=== PATIENT | female | born 1960 | race Caucasian/White ===

== ENCOUNTER 2020-01-30 09:25 | Emergency (ER) | payer OTHER, SELFPAY ==
[~2020-01-30] VITALS: Ht 154.9 cm; Wt 81.6 kg
[2020-01-30 09:38] VITALS: BP 113/69
--- NOTE | 2020-01-30 09:40 | NUR ---
biba w c/o covid + and increasing weakness, body aches 6/10 x7 days. DENIES N/V/D; SKIN IS PINK/WARM/DRY; AAOX4 WITH EVEN AND STEADY GAIT; LUNGS CLEAR BL; HR EVEN AND REGULAR; PT DENIES ANY FEVER, CP, SOB, OR COUGH AT THIS TIME; PATIENT STATES PAIN OF 6/10 AT THIS TIME. PATIENT POSITIONED FOR COMFORT; HOB ELEVATED; BEDRAILS UP X1; BED DOWN. ER MD MADE AWARE OF PT STATUS.
[2020-01-30] MEDS ORDERED: ONDANSETRON 4 MG ODT PO ONE (10:10)
[2020-01-30] MEDS ORDERED: ACETAMINOPHEN 325 MG TAB PO ONE (10:10)
[2020-01-30] MEDS ORDERED: NACL 0.9% 1,000 ML IV ONE (10:10)
[2020-01-30] MEDS ORDERED: MECLIZINE 25 MG TAB PO ONE (10:10)
--- NOTE | 2020-01-30 10:28 | NUR ---
OUT OF ROOM CT SCAN GROCERY STOCKER TO ATTEMPT AT A LATER TIME
--- NOTE | 2020-01-30 10:34 | NUR ---
PT TAKEN TO X RAY
[2020-01-30 11:38] LABS: BASOPHILS % (AUTO) 0.2 % (0.0-2.0); HEMATOCRIT 41.7 % (36-48); HEMOGLOBIN 13.8 g/dL (12.0-16.0); LYMPHOCYTES # (AUTO) 1.1 K/uL (2.5-16.5); LYMPHOCYTES % (AUTO) 19.5 % (20.5-51.1); MEAN CORPUSCULAR HEMOGLOBIN 29 pg (27-31); MEAN CORPUSCULAR HGB CONC 33 g/dL (33-37); MEAN CORPUSCULAR VOLUME 87.5 fL (80-94); MONOCYTES # (AUTO) 0.5 K/uL (0.8-1.0); MONOCYTES % (AUTO) 8.7 % (1.7-9.3); NEUTROPHILS # (AUTO) 4.1 K/uL (1.8-7.7); NEUTROPHILS % (AUTO) 71.6 % (42.2-75.2); PLATELET COUNT (AUTO) 208 K/uL (140-450); RED BLOOD CELL COUNT(AUTO) 4.77 MIL/uL (4.20-5.40); RED CELL DISTRIBUTION WIDTH 13.4 % (11.6-13.7); WHITE BLOOD COUNT (AUTO) 5.7 K/uL (4.8-10.8)
[2020-01-30 11:46] LABS: APPEARANCE,URINE CLEAR (CLEAR); BILIRUBIN,URINE 1+ (NEGATIVE); BLOOD, URINE NEGATIVE (NEGATIVE); COLOR,URINE YELLOW (YELLOW); LEUKOCYTE ESTERASE ,URINE TRACE (NEGATIVE); NITRITE, URINE NEGATIVE (NEGATIVE); UGLUCOSE NEGATIVE (NEGATIVE)
[2020-01-30 11:59] LABS: PROTHROMBIN TIME 10.3 secs (10.8-13.4)
[2020-01-30 12:00] LABS: RBC,URINE 0-5 /HPF (0-5); WBC,URINE 0-5 /HPF (0-5)
[2020-01-30 12:10] LABS: ALBUMIN 3.9 g/dL (3.4-5.0); CARBON DIOXIDE 28.9 mmol/L (21-32); CREATININE 0.8 mg/dL (0.6-1.3); TOTAL BILIRUBIN 0.3 mg/dL (0.0-1.0)
[2020-01-30 12:32] LABS: ANION GAP 11.8 (8-16); POTASSIUM 3.7 mmol/L (3.5-5.1)
[2020-01-30 14:58] VITALS: BP 119/72
--- NOTE | 2020-01-30 14:58 | NUR ---
Patient discharged with v/s stable. Written and verbal after care instructions given and explained. Patient alert, oriented and verbalized understanding of instructions. Ambulatory with steady gait. All questions addressed prior to discharge. ID band removed. Patient advised to follow up with PMD. Rx of MECLIZINE & TESSALON & ZOFRAN given. Patient educated on indication of medication including possible reaction and side effects. Opportunity to ask questions provided and answered.
== END 2020-01-30 14:58 | disposition home or self-care (01) ==
LOC: MED 09:25
DX: R42 Dizziness and giddiness (principal); Z20.828 Contact with and (suspected) exposure to other viral communicable diseases; R05 Cough; M79.10 Myalgia, unspecified site; R53.83 Other fatigue; R06.02 Shortness of breath; E11.9 Type 2 diabetes mellitus without complications
CPT/HCPCS: 36415; 36600; 70450; 71045; 80053; 81001; 82550; 82803; 83605; 83880; 84484; 85025; 85610; 85730; 87040; 87086; 93005; 96360; 99285; J7030; J8597; Q0162

== ENCOUNTER 2020-05-15 19:10 | Inpatient (IN) | payer OTHER, SELFPAY ==
[~2020-05-15] VITALS: Ht 167.6 cm; Wt 76.7 kg
[2020-05-15 19:12] VITALS: BP 65/23
--- NOTE | 2020-05-15 19:13 | NUR ---
PATIENT BIBA FOR C/O GENERALIZED WEAKNESS X 1 DAY. PER [facility] N/V X 1 HOUR. PATIENT NOTED WITH CHILLS. NO RESPIRATORY DISTRESS NOTED. BILATERAL PERRLA NOTED. A&O X4. BLOOD SUGAR 92. PER PATIENT SHE STATES SHE HAS BEEN HAVING A HEADACHE "ON AND OFF" SINCE 0200 THIS MORNING AND C/O DIZZINESS AND WEAKNESS. [facility] REPORTS PATIENT WAS COVID POSITIVE IN JANUARY AND REPORTS PATIENT LOST IN FEBRUARY. PATIENT PLACED IN [place] POSITION, RESTING COMFORTABLY. MED HX: DIVERTICULITIS, DM, DEPRESSION ALLERGIES: NKA
--- NOTE | 2020-05-15 19:22 | NUR ---
ekg performed at bedside. ekg reads sinus rhythm @ 87
[2020-05-15] MEDS ORDERED: NACL 0.9% 2,000 ML IV ONE (20:35)
[2020-05-15] MEDS ORDERED: NACL 0.9% 1,000 ML IV ONE ×2 (20:35→23:55)
[2020-05-15] MEDS ORDERED: ONDANSETRON 4 MG/2 ML VIAL IVP ONE (20:35)
--- NOTE | 2020-05-15 20:55 | NUR ---
XRAY AT BEDSIDE.
--- NOTE | 2020-05-15 21:03 | NUR ---
LAB AT BEDSIDE DRAWING LABS AND BLOOD CULTURES.
[2020-05-15 21:39] LABS: BASOPHILS % (AUTO) 0.1 % (0.0-2.0); EOSINOPHILS % (AUTO) 0.1 % (0.0-4.0); HEMATOCRIT 37.6 % (36-48); HEMOGLOBIN 12.5 g/dL (12.0-16.0); LYMPHOCYTES # (AUTO) 0.3 K/uL (2.5-16.5); LYMPHOCYTES % (AUTO) 5.7 % (20.5-51.1); MEAN CORPUSCULAR HEMOGLOBIN 30 pg (27-31); MEAN CORPUSCULAR HGB CONC 33 g/dL (33-37); MEAN CORPUSCULAR VOLUME 89.3 fL (80-94); MONOCYTES % (AUTO) 0.2 % (1.7-9.3); NEUTROPHILS # (AUTO) 4.9 K/uL (1.8-7.7); NEUTROPHILS % (AUTO) 93.9 % (42.2-75.2); PLATELET COUNT (AUTO) 230 K/uL (140-450); RED BLOOD CELL COUNT(AUTO) 4.21 MIL/uL (4.20-5.40); RED CELL DISTRIBUTION WIDTH 13.4 % (11.6-13.7); WHITE BLOOD COUNT (AUTO) 5.2 K/uL (4.8-10.8)
--- NOTE | 2020-05-15 21:41 | NUR ---
PATIENT TAKEN TO CT VIA GURNEY.
--- NOTE | 2020-05-15 21:49 | NUR ---
PT RETURN FROM CT
[2020-05-15 21:50] LABS: ALBUMIN 3.2 g/dL (3.4-5.0); ANION GAP 12.4 (8-16); CARBON DIOXIDE 23.9 mmol/L (21-32); CREATININE 1.1 mg/dL (0.6-1.3); POTASSIUM 3.3 mmol/L (3.5-5.1); TOTAL BILIRUBIN 0.5 mg/dL (0.0-1.0)
[2020-05-15] MEDS ORDERED: POTASSIUM CHL 20 MEQ/NACL 0.9% 1,000 ML IV ONE (22:15)
[2020-05-15 22:52] LABS: APPEARANCE,URINE CLEAR (CLEAR); BILIRUBIN,URINE NEGATIVE (NEGATIVE); BLOOD, URINE TRACE-I (NEGATIVE); COLOR,URINE YELLOW (YELLOW); LEUKOCYTE ESTERASE ,URINE NEGATIVE (NEGATIVE); NITRITE, URINE NEGATIVE (NEGATIVE); UGLUCOSE NEGATIVE (NEGATIVE)
--- NOTE | 2020-05-15 22:59 | NUR ---
LUIS ANTONIO FROM LAB AT BEDSIDE.
[2020-05-15 23:02] LABS: WBC,URINE 0-5 /HPF (0-5)
[2020-05-15 23:04] LABS: BARBITURATE, URINE NEGATIVE ng/ml (NEG <=200); BENZODIAZEPINE, URINE NEGATIVE ng/mL (NEG <=200); CANNABINOID, URINE NEGATIVE ng/mL (NEG <=50); COCAINE, URINE NEGATIVE ng/mL (NEG <=300); OPIATE, URINE NEGATIVE ng/mL (NEG <=2000); PHENCYCLIDINE SCREEN,URINE NEGATIVE ng/mL (NEG <=25)
--- NOTE | 2020-05-15 23:30 | NUR ---
Note alaina in EDM - 05/15/20 at 2342 by SANDRA PATIENT BP NOTED TO BE 89/37. ERMD MADE AWARE. NO NEW ORDERS AT THIS TIME.
--- NOTE | 2020-05-15 23:30 | NUR ---
PATIENT BP NOTED TO BE 89/37. ERMD MADE AWARE. NO NEW ORDERS AT THIS TIME.
--- NOTE | 2020-05-15 23:40 | NUR ---
Jessica foley in [facility] - 05/15/20 at 2342 by SANDRA CARMENCITA SWAB COLLECTED AND TAKEN TO LAB.
--- NOTE | 2020-05-15 23:40 | NUR ---
CARMENCITA SWAB COLLECTED AND TAKEN TO LAB.
[2020-05-15] MEDS ORDERED: NOREPINEPHRINE 4 MG in DEXTROSE 5% 250 ML IV ONE (23:55)
[2020-05-16] VITALS (15 sets, daily range): BP systolic 95–128; BP diastolic 47–69
[2020-05-16] MEDS ORDERED: cefTRIAXone 1,000 MG VIAL ONE ×2 (00:26→10:46)
[2020-05-16] MEDS ORDERED: NOREPINEPHRINE 4 MG/4 ML VIAL IV ONE ×3 (00:27→09:53)
--- NOTE | 2020-05-16 01:55 | NUR ---
WITH PERMISSION FROM PATIENT, SPOKE WITH ALBANIA HERNANDEZ [phone] AND GAVE AN UPDATE ON PATIENT CONDITION.
--- NOTE | 2020-05-16 03:16 | NUR ---
Patient appears to be resting comfortably in bed. Vital Signs within normal limits. Respirations even and unlabored.
--- NOTE | 2020-05-16 04:02 | NUR ---
PATIENT ASSISTED TO BEDSIDE COMODE. PATIENT REMAINS ON UTILIZATION MANAGER. VSS.
--- NOTE | 2020-05-16 05:32 | NUR ---
PATIENT RESTING IN BED WITH EYES CLOSED. PATIENT RESPIRATIONS ARE EVEN AND UNLABORED. SKIN IS WARM AND DRY TO TOUCH. PATIENT RESPONSIVE TO VERBAL STIMULI. PATIENT REMAINS ON QUALITY ASSURANCE SPECIALIST. VSS. PATIENT REMAINS ON LEVOPHED DRIP. IV SITE REMAINS PATIENT. BED IS LOCKED AND IN LOWEST POSTION.
--- NOTE | 2020-05-16 06:55 | NUR ---
Patient appears to be resting comfortably in bed. Vital Signs within normal limits. Respirations even and unlabored.
--- NOTE | 2020-05-16 07:14 | NUR ---
REPORT GIVEN TO BARBARA TERRAZAS FOR TRANSFER OF CARE.
[2020-05-16] MEDS ORDERED: GABA300C PO (07:15)
[2020-05-16] MEDS ORDERED: ROSU20TA1 PO (07:15)
[2020-05-16] MEDS ORDERED: OMEP20TC10 PO (07:15)
--- NOTE | 2020-05-16 07:20 | NUR ---
RECEIVED REPORT FROM GEGE JIMENEZ, TRANSFER OF CARE AT THIS TIME. CONTACTED DR SANDY REGARDING LEVOPHED BEING IN PERIPHERAL LINE, STATES TO ORDER PICC LINE. PICC LINE ORDERED. PT RESTING WITH EYES CLOSED, BREATHING EVEN AND UNLABORED.
--- NOTE | 2020-05-16 07:23 | NUR ---
CALL PLACE TO [facility], LEAVE MESSAGE.
--- NOTE | 2020-05-16 07:35 | NUR ---
EXPLAINED IN [place] IMPORTANCE OF KEEPING ARM STRAIGHT, AND POSSIBLE DANGER OF INFILTRATION WITH VESICANT MEDICATION. PT VERBALIZE UNDERSTANDING.
--- NOTE | 2020-05-16 07:39 | NUR ---
CONSENT FOR PICC LINE EXPLAINED TO PT IN [place], PT VERBALIZES UNDERSTANDING. CONSENT SIGNED BY PT.
[2020-05-16] MEDS ORDERED: HYDROcodone/APAP 5/325 MG 1 TAB TAB PO PRN (08:25)
[2020-05-16] MEDS ORDERED: MORPHINE SULFATE 2 MG/ML SYR IVP PRN (08:25)
[2020-05-16] MEDS ORDERED: LORazepam 2 MG/ML VIAL IM/IVP PRN (08:25)
[2020-05-16] MEDS ORDERED: MAG SULF 2000 MG/WATER PREMIX 50 ML IV PRN (08:25)
[2020-05-16] MEDS ORDERED: INSULIN LISPRO SLIDING SCALE 100 UNITS/ML VIAL SUBQ PRN (08:25)
[2020-05-16] MEDS ORDERED: DEXTROSE 50% 50 ML SYR IVP PRN (08:25)
[2020-05-16] MEDS ORDERED: DOCUSATE SODIUM 100 MG GELCAP PO PRN (08:25)
[2020-05-16] MEDS ORDERED: ZOLPIDEM 5 MG TAB PO PRN (08:25)
[2020-05-16] MEDS ORDERED: NOREPINEPHRINE 16 MG in DEXTROSE 5% 250 ML IV PRN (08:25)
[2020-05-16] MEDS ORDERED: POTASSIUM CHLORIDE 10 MEQ TABER PO PRN (08:25)
[2020-05-16] MEDS ORDERED: NACL 0.9% 1,000 ML IV SCH ×3 (08:25→09:25)
--- NOTE | 2020-05-16 08:50 | NUR ---
DC PLANNIN YRS OLD FEMALE PATIENT WAS ADMITTED FROM HOME WITH THE DX OF SEPTIC SHOCK . PT HAS A HX OF COVID IN JAN 2020 DIVERTICULOSIS , DM AND DEPRESSION . CT HEAD NEGATIVE. CXR SHOWED NO ACUTE CARDIOPULMONARY DISEASE RAPID COVID TEST NEGATIVE. ABD X-RAY SHOWED ON SPECIFIC BOWEL GAS PATTERN. LACTIC ACID 2.5 STARTED IVF , ROCEPHIN IV ABX , LEVOPHED DRIP AND CONTINUED HOME MEDS CONSULTED WITH PULMO AND ID. DC PLAN PER PT RESPONSE TO THE TREATMENT. CM TO FOLLOW Addendum: 05/19/20 at 1445 by Siria Mckinney RN DC PLANNING: FAXED TO [facility] [phone] FOR HOME INFUSION. PLS FOLLOW UP WITH GEOR[place] [phone].CM TO FOLLOW Addendum: 05/19/20 at 1550 by Siria Mckinney RN DC PLANNING: RECEIVED A CALL FROM [facility] SPOKE WITH REGINA NOTIFIED HER DC PLAN OVER THE WEEKEND AWAITING FOR DR RAMOS RECOMMENDATION. PER REGINA HAS NO NURSE OVER THE WEEKEND WILL FOLLOW UP ON FRIDAY. CM TO FOLLOW
[2020-05-16] MEDS ORDERED: NON-FORMULARY ITEM (Rosuvastatin Calcium* (Crestor*) 1 TAB) PO SCH (09:00)
[2020-05-16 09:20] LABS: PROTHROMBIN TIME 13.3 secs (10.8-13.4)
[2020-05-16 09:32] LABS: CHOL/HDL RATIO 1.9 (1-4.5); THYROID STIMULATING HORMONE 0.4 uIU/mL (0.34-3.74)
--- NOTE | 2020-05-16 09:44 | NUR ---
PT ALERT AWAKE AND ALERT, BREATHING EVEN AND UNLABORED. NO DISTRESS NOTED. LEFT AC APPEARS WITHOUT ANY INFILTRATION.
--- NOTE | 2020-05-16 10:00 | NUR ---
PT ALERT AND AWAKE, BREATHING EVEN AND UNLABORED. NO DISTRESS NOTED.
[2020-05-16] MEDS: GABAPENTIN 300 MG CAP PO SCH (10:03)
--- NOTE | 2020-05-16 10:03 | NUR ---
PICC NURSE AT BEDSIDE.
--- NOTE | 2020-05-16 10:21 | NUR ---
SOCIAL WORK NOTE: Patient's Orientation Unable To Assess Information Provided By ALBANIA HERNANDEZ - SON Comments SW WAS UNABLE TO MEET PATIENT AT BEDSIDE. SW COMPLETED ASSESSMENT WITH PATIENT'S SON. Pulley Maintainer, Realtionship and Phone Number ALBANIA LYNCH [phone] Healthcare Power of Bundling Machine Operator No Does Patient Have a POLST No Identifying Problems No Social Work Triggers Is A Social Work Consult Needed No Mandate Report Filed No Explanation Of Identifying Problems PATIENT IS A 59-YEAR-OLD FEMLAE ADMITTED FOR SEPTIC SHOCK. PATIENT HAS PMHX OF DIABETES. Admitted From Home Pre-Admission Level Of Functioning Status Independent/Ambulatory Prior Resources/Services Used In Last 12 Months No Prior Resources Used Prior DME No Prior DME Used Dialysis Comments N/A Living Situation Lives With Family House Patient Had Caregiver No Home Support No Caregiver Issues Financial Issues No Known Financial Issue Referral To The Financial Counselor Needed No Factors/Needs No D/C Needs Identified Pt/Rep Participated In Discharge Plan Yes Patient/Family Agress With Discharge Plan Yes Discharge Plan Comments TENTATIVE DISCHARGE PLAN IS FOR PATIENT TO RETURN HOME. DC Plan Status Initiated
--- NOTE | 2020-05-16 10:51 | NUR ---
PICC LINE OK FOR USE PER PICC LINE NURSE AFTER CXR PLACEMENT. LEVOPHED RUNNING ON PICC LINE
--- NOTE | 2020-05-16 11:00 | NUR ---
PT ALERT AND AWAKE, BREATHING EVEN AND UNLABORED. NO DISTRESS NOTED.
--- NOTE | 2020-05-16 11:03 | NUR ---
ONLY 100ML/1000ML OF NACL-KCL 20MEQ GIVEN DUE TO LEVOPHED. DR SANDY MADE AWARE, STATES TO HOLD MED AND GIVE 40MEQ PO.
[2020-05-16] MEDS ORDERED: POTASSIUM CHLORIDE 10 MEQ TABER PO SCH (11:05)
--- NOTE | 2020-05-16 11:24 | NUR ---
REPORT GIVEN TO BARBARA ELLIS IN ICU.
--- NOTE | 2020-05-16 11:40 | NUR ---
Patient will be admitted to care of Dr Parker. Admited to ICU. Will go to room 3. Belongings list completed. Report to Melly JIMENEZ.
--- NOTE | 2020-05-16 11:40 | NUR ---
PT TAKEN TO FLOOR AT THIS TIME.
--- NOTE | 2020-05-16 11:50 | NUR ---
RECEIVED PATIENT FROM ER. PATIENT AOX4, ABLE TO MAKE NEEDS KNOW. NO SIGNS OF DISTRESS OR PAIN. ON 2L NC. SHARAN PICC LINE DOUBLE LUMEN INFUSING LEVO AT 16 MCG/MIN. SKIN INTACT. MEDICAL RECORDS FIELD TECHNICIAN, PULSE OXIMETER, AND SAFETY MEASURES IN PLACE. BED IN LOW POSITION, CALL LIGHT WITHIN REACH, WILL CONTINUE TO MONITOR.
--- NOTE | 2020-05-16 11:55 | NUR ---
PT ARRIVED FROM ER ON GURNEY, ABLE TO TRANSFER SELF TO BED, AAOX4, RESP EVEN UNLABORED, ON 2L NC, O2SAT 100%, PT PLACED ON JOB PRESS OPERATOR, ARRIVES ON LEVOPPHED DRIP AT 16MCG/MIN, BP 111/58, PICCC LINE IN PLACE TO R UPPER ARM, SITE WNL, INITIAL ASSESSMENT DONE, POC REVIEWED WITH PT AND CRIS LOVELACE ON THE PHONE, VERBALIZED UNDERSTANDING, ALL SAFETY MEASURES IN PLACE, WILL CONTIUE TO ALEXIS
--- NOTE | 2020-05-16 12:10 | NUR ---
CHARGE NURSE, RHONDA RN, CHECKED BLOOD SUGAR, 124, NO INSULIN COVERAGE NEEDED, WILL CONTINUE TO MONITOR.
[2020-05-16] MEDS: BLOOD GLUCOSE MONITORING 1 DEV DEV FS SCH ×3 (12:18→19:57)
--- NOTE | 2020-05-16 12:20 | NUR ---
ADMINISTERED SCHEDULED K DUR FOR LOW POTASSIUM. WILL CONTINUE TO MONITOR.
--- NOTE | 2020-05-16 14:51 | NUR ---
PATIENT HAS BEEN SCREENED AND CATEGORIZED HIGH NUTRITION RISK. PATIENT WILL BE SEEN WITHIN 1-2 DAYS OF ADMISSION. 05/16/20-05/17/[address]
--- NOTE | 2020-05-16 16:45 | NUR ---
CHECKED ON PATIENT, NO SIGN OF DISTRESS OR PAIN, WILL CONTINUE TO MONITOR.
--- NOTE | 2020-05-16 18:40 | NUR ---
CHECKED ON PATIENT, NO SIGN OF DISTRESS OR PAIN, PATIENT COMFORTABLE AND CLEAN, IV AND PICC CLEAN, DRY, AND INTACT. MEDICAL INSURANCE CLAIMS PROCESSOR, PULSE OXIMETER, AND SAFETY MEASURES IN PLACE. CALL LIGHT WITHIN REACH. ABLE TO MAKE NEEDS KNOW. BED IN LOW POSITION. WILL CONTINUE TO MONITOR. WILL ENDORSE TO CRIMINAL JUSTICE FACULTY RN.
--- NOTE | 2020-05-16 19:12 | NUR ---
ENDORSED TO EDITOR DEPARTMENT NURSE, J CARLOS JIMENEZ, FOR CONTINUITY OF CARE.
--- NOTE | 2020-05-16 19:13 | NUR ---
RECEIVED BEDSIDE REPORT FROM DAY RN. PT IS AAOX4 ABLE TO MAKE NEEDS KNOWN. PT IS RESTING COMFORTABLY IN BED TALKING ON PHONE WITH SON. RESPIRATIONS ARE EQUAL AND UNLABORED ON ROOM AIR. LUNG SOUNDS ARE CLEAR. SKIN IS INTACT. PT ON BEDREST D/T GEN WEAKNESS. IV ON SHARAN PICC DOUBLE LUMEN ON TKO AND LEVO 12MCG/MIN. PT ON STANDARD ISOLATION. POC DISCUSSED WITH PT. CALL LIGHT IS WITHIN REACH. WILL CONTINUE TO MONITOR.
[2020-05-16] MEDS: metroNIDAZOLE 500 MG/NS PREMIX 100 ML IV SCH (20:05)
--- NOTE | 2020-05-16 20:05 | NUR ---
VSS. BLOOD SUGAR 105 NO COVERAGE NEEDED. BRIAN MEDICATIONS GIVEN PER ORDERS. MED EDUCATION GIVEN. IV ON LAC 18G REMOVED WITH MINIMAL BLEEDING WELL CONTROLLED. ALL NEEDS MET. CALL LIGHT IS WITHIN REACH
[2020-05-16] MEDS: SIMVASTATIN 40 MG TAB PO SCH (20:06)
--- NOTE | 2020-05-16 22:03 | NUR ---
PATIENT RESTING COMFORTABLY IN BED TALKING ON THE PHONE. NO S/S OF DISTRESS. GAVE PATIENT BLANKET PER REQUEST. ALL NEEDS MET.
[2020-05-17] VITALS (12 sets, daily range): BP systolic 92–124; BP diastolic 42–64
--- NOTE | 2020-05-17 00:04 | NUR ---
ROUNDS MADE. PT APPEARS TO BE ASLEEP EASILY AROUSABLE TO NAME. VSS. DENIES ANY PAIN AT THIS TIME. SAFETY MEASURES ARE IN PLACE. CALL LIGHT IS WITHIN REACH.
--- NOTE | 2020-05-17 02:01 | NUR ---
MADE ROUNDS. PATIENT APPEARS TO BE SLEEPING. CHEST RISE AND FALL NOTED.CALL LIGHT IS WITHIN REACH.
[2020-05-17] MEDS: ACETAMINOPHEN 325 MG TAB PO PRN ×2 (04:13→15:30)
[2020-05-17] MEDS: metroNIDAZOLE 500 MG/NS PREMIX 100 ML IV SCH ×3 (04:13→20:22)
--- NOTE | 2020-05-17 04:13 | NUR ---
BRIAN MEDICATIONS GIVEN PER ORDERS. VSS PT TEMP 100.8 ADMIN PRN TYLENOL AND COOLING MEASURES ARE NOW IN PLACE. ALL NEEDS MET. CALL LIGHT IS WITHIN REACH.
--- NOTE | 2020-05-17 05:25 | NUR ---
ASSISTED PATIENT WITH THE BEDPAN. SPONGE BATH GIVEN AND NEW GOWN AND SHEETS PROVIDED. BLOOD SUGAR 118. RECHECK TEMP 99.4. WILL CONTINUE WITH COOLING MEASURES. ALL SAFETY MEASURES ARE IN PLACE.
[2020-05-17 06:04] LABS: BASOPHILS # (AUTO) 0.1 K/uL (0.00-0.22); BASOPHILS % (AUTO) 0.2 % (0.0-2.0); EOSINOPHILS # (AUTO) 0.1 K/uL (0-0.4); EOSINOPHILS % (AUTO) 0.3 % (0.0-4.0); HEMATOCRIT 32.4 % (36-48); HEMOGLOBIN 10.7 g/dL (12.0-16.0); LYMPHOCYTES # (AUTO) 1.1 K/uL (2.5-16.5); LYMPHOCYTES % (AUTO) 4.4 % (20.5-51.1); MEAN CORPUSCULAR HEMOGLOBIN 29 pg (27-31); MEAN CORPUSCULAR HGB CONC 33 g/dL (33-37); MEAN CORPUSCULAR VOLUME 89.1 fL (80-94); MONOCYTES # (AUTO) 0.9 K/uL (0.8-1.0); MONOCYTES % (AUTO) 3.8 % (1.7-9.3); NEUTROPHILS # (AUTO) 22.4 K/uL (1.8-7.7); NEUTROPHILS % (AUTO) 91.3 % (42.2-75.2); PLATELET COUNT (AUTO) 178 K/uL (140-450); RED BLOOD CELL COUNT(AUTO) 3.64 MIL/uL (4.20-5.40); RED CELL DISTRIBUTION WIDTH 13.6 % (11.6-13.7)
[2020-05-17] MEDS: BLOOD GLUCOSE MONITORING 1 DEV DEV FS SCH ×4 (06:17→20:22)
[2020-05-17 06:42] LABS: WHITE BLOOD COUNT (AUTO) 24.6 K/uL (4.8-10.8)
[2020-05-17 06:52] LABS: ANION GAP 14.5 (8-16); CARBON DIOXIDE 22.2 mmol/L (21-32); CREATININE 0.7 mg/dL (0.6-1.3); POTASSIUM 3.7 mmol/L (3.5-5.1)
--- NOTE | 2020-05-17 07:06 | NUR ---
PAGED DR RAMOS. WAITING FOR CALL BACK.
[2020-05-17 07:09] LABS: PHOSPHORUS 1.4 mg/dL (2.5-4.9)
--- NOTE | 2020-05-17 07:24 | NUR ---
GAVE BEDSIDE REPORT TO DAY RN. PT ENDORSED IN STABLE CONDITION.
--- NOTE | 2020-05-17 08:00 | NUR ---
Patient recieved after report. Patient calm without needs or concerns. Patient given breakfast, bathed with CHG and bedding changed.
[2020-05-17 08:28] LABS: MAGNESIUM 1.7 mg/dL (1.8-2.4)
[2020-05-17] MEDS: NACL 0.9% 1,000 ML IV SCH ×2 (08:40→19:47)
[2020-05-17] MEDS: SODIUM PHOS / POTASSIUM PHOS 1 PKT PDR PO SCH ×3 (09:00→16:38)
[2020-05-17] MEDS: GABAPENTIN 300 MG CAP PO SCH (09:00)
--- NOTE | 2020-05-17 12:00 | NUR ---
Patient has lunch and states feels well and has no issues at this time. D/C'd the Levophed and patient's blood pressure is maintaining and appropriate level. Spoke to patient's sister, son and daughter about her condition. All family question's answered.
--- NOTE | 2020-05-17 13:00 | NUR ---
Patient transferred to [facility]. Patient and family have been advised of transfer to [facility]. BARBARA cuenca report in ICU at bedside. No sign or symptoms of distress upon transfer.
--- NOTE | 2020-05-17 13:47 | NUR ---
05/17/20 RD INITIAL ASSESSMENT COMPLETED PLEASE REFER TO NUTRITION ASSESSMENT UNDER CARE ACTIVITY FOR ESTIMATED NUTRITIONAL NEEDS. 1. CONTINUE CCHO 60GM DIET TOLERATED 2. RECOMMEND GLUCERNA TID 3. RECOMMEND REGULAR DIET IF PT DOES NOT HAVE HYPERGLYCEMIA 4. RD TO FOLLOW-UP 3-5 DAYS, MODERATE RISK KHARI HOFFMAN RD
--- NOTE | 2020-05-17 14:50 | NUR ---
RECEIVED REPORT FORM ICU NURSE MARION FOR CONTINUITY OF CARE. PATIENT IS AAOX 4. VIETNAMESE SPEAKING. ON RA. IV TO RIGHT UPPER ARM PICC DOUBLE LUMEN, PATENT. NO ACUTE DISTRESS NOTED AT THIS TIME. SAFETY MEASURES IN PLACE, WILL CONTINUE TO MONITOR.
--- NOTE | 2020-05-17 15:30 | NUR ---
MAG RIDER GIVEN FOR MAGNESIUM LEVEL 1.7. EDUCATION PROVIDED.
--- NOTE | 2020-05-17 16:37 | NUR ---
BS LEVEL 83, PROVIDED APPLE JUICE. PATIENT DENIES DISCOMFORT. WILL CONTINUE TO MONITOR.
--- NOTE | 2020-05-17 19:25 | NUR ---
ENDORSED PATIENT TO HIGHWAY PAINTER RN FOR CONTINUITY OF CARE. PATIENT IN STABLE CONDITION.
--- NOTE | 2020-05-17 19:26 | NUR ---
RECEIVED BEDSIDE ENDORSEMENT FROM AM SHIFT RN. PT IS AOX4, ON ROOM AIR, NO DISTRESS, NO C/O PAIN, IVF INFUSING VIA SHARAN PICC 2 LUMENS, INTACT, ASSISTED PT IN WALKING TO THE RESTROOM (CGA), SAFETY MEASURES IN PLACE, PLAN OF CARE DISCUSSED, CALL LIGHT WITHIN REACH.
[2020-05-17] MEDS: SIMVASTATIN 40 MG TAB PO SCH (20:27)
--- NOTE | 2020-05-17 20:42 | NUR ---
DUE MEDS GIVEN ORDERED, TOLERATED WELL, ASSISTED PT IN WALKING TO THE RESTROOM, PT VOIDED, PT IS TALKING TO HIS SON OVER THE CELLPHONE. KEPT COMFORTABLE, CALL LIGHT WITHIN REACH.
--- NOTE | 2020-05-17 23:25 | NUR ---
PT ASLEEP, EASILY AROUSABLE TO VERBAL, KEPT WARM AND COMFORTABLE, PT SAID THAT SHE VOIDED AGAIN AND CANDY SEPARATOR HARD HELPED HER WALKED TO THE RESTROOM. I TOLD HER TO PRESS THE CALL LIGHT SO I CAN ASSIST HER AND FOR ANYTHING. PT SAID OK. CALL LIGHT WITHIN REACH.
[2020-05-18] VITALS: BP 115/68
[2020-05-18] MEDS: ACETAMINOPHEN 325 MG TAB PO PRN ×2 (00:36→22:40)
--- NOTE | 2020-05-18 00:40 | NUR ---
C/O MILD HEADACHE 3/10, INTERMITTENT, TYLENOL PRN GIVEN ORDERED, TOLERATED WELL, CALL LIGHT WITHIN REACH.
--- NOTE | 2020-05-18 02:47 | NUR ---
ASLEEP, RESPIRATION EVEN AND UNLABORED, CALL LIGHT WITHIN REACH, WILL CONTINUE TO MONITOR.
[2020-05-18 04:00] VITALS: BP 108/68
[2020-05-18] MEDS: metroNIDAZOLE 500 MG/NS PREMIX 100 ML IV SCH ×3 (04:19→21:47)
[2020-05-18] MEDS: NACL 0.9% 1,000 ML IV SCH ×2 (05:21→14:40)
--- NOTE | 2020-05-18 05:58 | NUR ---
ASSISTED PT IN WALKING TO THE RESTROOM AND BACK TO HER BED.
[2020-05-18 06:09] LABS: BASOPHILS % (AUTO) 0.3 % (0.0-2.0); EOSINOPHILS # (AUTO) 0.2 K/uL (0-0.4); EOSINOPHILS % (AUTO) 1.6 % (0.0-4.0); HEMATOCRIT 31.3 % (36-48); HEMOGLOBIN 10.4 g/dL (12.0-16.0); LYMPHOCYTES # (AUTO) 1.5 K/uL (2.5-16.5); LYMPHOCYTES % (AUTO) 11.4 % (20.5-51.1); MEAN CORPUSCULAR HEMOGLOBIN 30 pg (27-31); MEAN CORPUSCULAR HGB CONC 33 g/dL (33-37); MEAN CORPUSCULAR VOLUME 88.6 fL (80-94); MONOCYTES # (AUTO) 0.4 K/uL (0.8-1.0); MONOCYTES % (AUTO) 3.5 % (1.7-9.3); NEUTROPHILS # (AUTO) 10.7 K/uL (1.8-7.7); NEUTROPHILS % (AUTO) 83.2 % (42.2-75.2); PLATELET COUNT (AUTO) 139 K/uL (140-450); RED BLOOD CELL COUNT(AUTO) 3.53 MIL/uL (4.20-5.40); RED CELL DISTRIBUTION WIDTH 13.6 % (11.6-13.7); WHITE BLOOD COUNT (AUTO) 12.9 K/uL (4.8-10.8)
[2020-05-18] MEDS: BLOOD GLUCOSE MONITORING 1 DEV DEV FS SCH ×4 (06:40→21:09)
--- NOTE | 2020-05-18 06:52 | NUR ---
PT STABLE, NO DISTRESS, ALL NEEDS ATTENDED, KEPT COMFORTABLE, CALL LIGHT WITHIN REACH.
[2020-05-18 07:25] LABS: ANION GAP 10.8 (8-16); CARBON DIOXIDE 25.9 mmol/L (21-32); CREATININE 0.6 mg/dL (0.6-1.3); POTASSIUM 3.7 mmol/L (3.5-5.1)
[2020-05-18 07:29] LABS: MAGNESIUM 2.2 mg/dL (1.8-2.4); PHOSPHORUS 2.6 mg/dL (2.5-4.9)
--- NOTE | 2020-05-18 07:31 | NUR ---
BEDSIDE ENDORSEMENT GIVEN TO AM SHIFT RN FOR CONTINUITY OF CARE, PT STABLE.
--- NOTE | 2020-05-18 07:35 | NUR ---
RECEIVED PATIENT FROM NIGHT NURSE. PATIENT IN BED AWAKE AND ALERT. RESPONDING APPROPRIATELY. RESP EVEN AND UNLABORED ON ROOM AIR. C/O MILD HEADACHE. WILL MEDICATE APPROPRIATELY. SHARAN PICC INFUSING NS 100ML/HR. PLAN OF CARE DISCUSSED. PATIENT VERBALIZED UNDERSTANDING. HOB ELEVATED. SAFETY MEASURES IN PLACE. CALL LIGHT WITHIN REACH. WILL CONTINUE TO MONITOR.
[2020-05-18 08:00] VITALS: BP 123/71
[2020-05-18] MEDS: GABAPENTIN 300 MG CAP PO SCH (08:22)
--- NOTE | 2020-05-18 08:30 | NUR ---
PATIENT IN BED AWAKE AND ALERT. MORNING ROUTINE MEDICATIONS GIVEN. PATIENT TOLERATED WELL. RESP EVEN AND UNLABORED ON ROOM AIR. NO NOTED DISTRESS AT THIS TIME. PLAN OF CARE DISCUSSED, PATIENT VERBALIZED UNDERSTANDING. PATIENT ABLE TO MAKE NEEDS KNOWN. SHARAN PICC INFUSING WELL. CALL LIGHT WITHIN REACH. WILL CONTINUE TO MONITOR.
--- NOTE | 2020-05-18 11:52 | NUR ---
BLOOD SUGAR 96, NO INSULIN COVERAGE PROVIDED PER SLIDING SCALE. NO NOTED DISTRESS. FLUIDS ENCOURAGED. CALL LIGHT WITHIN REACH. WILL CONTINUE TO MONITOR.
[2020-05-18 12:00] VITALS: BP 119/71
--- NOTE | 2020-05-18 14:35 | NUR ---
PATIENT IN BED SLEEPING, CHEST NOTED RISING. NO NOTED DISTRESS. RESP EVEN AND UNLABORED ON ROOM AIR. CALL LIGHT WITHIN REACH. WILL CONTINUE TO MONITOR.
[2020-05-18 16:00] VITALS: BP 127/64
--- NOTE | 2020-05-18 16:35 | NUR ---
PATIENT STATED HER CONCERNS TO NURSING STAFF OF HAVING SEEN EVIL IMAGES IN HER MIND. ALSO PATIENT STATED OF FEEING LIKE "SOMEONE IS GOING TO GET RAPED." PATIENT UNABLE TO SAY WHY SHE'S FEELING THIS WAY BUT SHE DOES. PATIENT DOES NOT HAVE ANY SUICIDAL IDEATIONS AT THIS TIME BUT D/T HER RECENT LOSS OF HER SPOUSE FROM COVID, SHE WISHES TO WELL. PATIENT REQUESTED TO HAVE PSYCH EVAL. DR ALMODOVAR MADE AWARE AND GAVE ORDER FOR PSYCH EVAL CONSULT. DR LANDAVERDE WAS MADE AWARE AND WILL BE HERE TO SEE PATIENT TOMORROW MORNING. PATIENT MADE AWARE AND VERBALIZED UNDERSTANDING. PATIENT ENCOURAGED TO USE CALL LIGHT TO CALL STAFF WHEN SHE NEEDS AND VERBALIZED UNDERSTANDING. WILL CONTINUE TO MONITOR.
--- NOTE | 2020-05-18 17:59 | NUR ---
PATIENT CONSENTED TO HAVE HER MEDICAL RECORDS REQUEST FROM [facility]. REQUEST FAXED OVER TO [facility]. WILL CONTINUE TO MONITOR. Addendum: 05/18/20 at 1823 by Alesia Roblero RN BLOOD GLUCOSE 97. NO INSULIN COVERAGE PER PROTOCOL.
--- NOTE | 2020-05-18 19:35 | NUR ---
ENDORSED PATIENT TO NIGHT NURSE. PATIENT IN STABLE CONDITION.
--- NOTE | 2020-05-18 19:36 | NUR ---
RECD. PATIENT RESTING IN BED, AWAKE, A/OX4. RESPIRATION EVEN AND UNLABORED. IV OF NS INFUSING AT 100 ML/HR, RIGHT UPPER ARM PICC LINE. ABLE TO AMBULATE TO THE BR WITH ASSISTANCE. ON IV ANTIBIOTICS. MEDICATIONS AND CARE FOR THE SHIFT DISCUSSED. VERBALIZED UNDERSTANDING. DENIES PAIN 0/10.
[2020-05-18 20:00] VITALS: BP 141/73
--- NOTE | 2020-05-18 20:00 | NUR ---
Patient's Plan of Care was discussed and reviewed with CHIEF LIBRARIAN EXTENSION DEPARTMENT: DANE LUNDBERG
[2020-05-18] MEDS: SIMVASTATIN 40 MG TAB PO SCH (21:05)
--- NOTE | 2020-05-18 21:09 | NUR ---
SCHEDULED MEDICATIONS AND SNACK FOR THE NIGHT GIVEN.
--- NOTE | 2020-05-18 22:40 | NUR ---
WITH HEADACHE, MEDICATED WITH TYLENOL PER MD ORDER.
[2020-05-19] MEDS: NACL 0.9% 1,000 ML IV SCH ×4 (01:26→11:40)
--- NOTE | 2020-05-19 01:30 | NUR ---
SLEEPING COMFORTABLY IN BED.
--- NOTE | 2020-05-19 03:30 | NUR ---
ASSISTED TO AMBULATED TO BR TO VOID, BACK TO BED. SAFETY MAINTAINED.
[2020-05-19 04:00] VITALS: BP 123/59
[2020-05-19] MEDS: metroNIDAZOLE 500 MG/NS PREMIX 100 ML IV SCH ×3 (04:57→21:31)
[2020-05-19] MEDS: ONDANSETRON 4 MG/2 ML VIAL IM/IVP PRN (05:03)
--- NOTE | 2020-05-19 05:03 | NUR ---
NAUSEATED, MEDICATED WITH ZOFRAN PER MD ORDER BY BARBARA WEINBERG.
--- NOTE | 2020-05-19 06:05 | NUR ---
NO NAUSEA NOTED, SLEEPING COMFORTABLY IN BED.
[2020-05-19 06:42] LABS: BASOPHILS # (AUTO) 0.1 K/uL (0.00-0.22); BASOPHILS % (AUTO) 1.1 % (0.0-2.0); EOSINOPHILS # (AUTO) 0.1 K/uL (0-0.4); EOSINOPHILS % (AUTO) 2.1 % (0.0-4.0); HEMATOCRIT 33.6 % (36-48); HEMOGLOBIN 11.2 g/dL (12.0-16.0); LYMPHOCYTES # (AUTO) 1.8 K/uL (2.5-16.5); LYMPHOCYTES % (AUTO) 25.4 % (20.5-51.1); MEAN CORPUSCULAR HEMOGLOBIN 30 pg (27-31); MEAN CORPUSCULAR HGB CONC 33 g/dL (33-37); MEAN CORPUSCULAR VOLUME 89.1 fL (80-94); MONOCYTES # (AUTO) 0.5 K/uL (0.8-1.0); MONOCYTES % (AUTO) 6.3 % (1.7-9.3); NEUTROPHILS # (AUTO) 4.7 K/uL (1.8-7.7); NEUTROPHILS % (AUTO) 65.1 % (42.2-75.2); PLATELET COUNT (AUTO) 173 K/uL (140-450); RED BLOOD CELL COUNT(AUTO) 3.77 MIL/uL (4.20-5.40); RED CELL DISTRIBUTION WIDTH 13.7 % (11.6-13.7); WHITE BLOOD COUNT (AUTO) 7.2 K/uL (4.8-10.8)
--- NOTE | 2020-05-19 07:00 | NUR ---
CONDITION REMAIN STABLE. WILL ENDORSE TO AM SHIFT NURSE FOR CONTINUITY OF CARE.
--- NOTE | 2020-05-19 07:30 | NUR ---
RECEIVED BEDSIDE REPORT FROM DRILLER AND REAMER NURSE. PATIENT IS A/OX4. ABLE TO MAKE NEEDS KNOWN. RESPIRATION EVEN AND UNLABORED. ON RA WITH NO DISTRESS NOTED. SKIN IS WARM AND DRY. HAS SHARAN PICC LINE INFUSING NS AT 100 ML/HR,INTACT AND PATENT. ABLE TO AMBULATE TO THE BR WITH ASSISTANCE. PLAN OF CARE DISCUSSED. SAFETY PRECAUTIONS IN PLACE. CALL LIGHT WITHIN REACH. WILL CONTINUE TO MONITOR.
[2020-05-19 07:37] LABS: ANION GAP 12.7 (8-16); CARBON DIOXIDE 24.9 mmol/L (21-32); CREATININE 0.5 mg/dL (0.6-1.3); POTASSIUM 3.6 mmol/L (3.5-5.1)
[2020-05-19 07:38] LABS: MAGNESIUM 1.9 mg/dL (1.8-2.4); PHOSPHORUS 3.1 mg/dL (2.5-4.9)
[2020-05-19 08:00] VITALS: BP 124/70
[2020-05-19] MEDS: BLOOD GLUCOSE MONITORING 1 DEV DEV FS SCH ×4 (08:12→21:42)
[2020-05-19] MEDS: GABAPENTIN 300 MG CAP PO SCH (09:56)
--- NOTE | 2020-05-19 10:00 | NUR ---
ALL SCHEDULED MEDS GIVEN. PT IS STABLE. NO DISTRESS NOTED. WILL CONTINUE TO MONITOR.
--- NOTE | 2020-05-19 11:50 | NUR ---
BLOOD SUGAR CHECK IS 146. NO INSULIN COVERAGE NEEDED. PT IS STABLE. WILL CONTINUE TO MONITOR.
--- NOTE | 2020-05-19 13:29 | NUR ---
NOTIFIED DR. ALMODOVAR REGARDING PATIENT'S BLOOD CULTURE RESULTS.
[2020-05-19 16:00] VITALS: BP 124/75
--- NOTE | 2020-05-19 16:00 | NUR ---
PATIENT WAS SEEN BY PSYCHIATRIST. NO NEW ORDERS WERE RECEIVED. WILL CONTINUE TO MONITOR.
--- NOTE | 2020-05-19 17:00 | NUR ---
BLOOD SUGAR CHECK IS 102. NO INSULIN COVERAGE NEEDED. PT IS STABLE. WILL CONTINUE TO MONITOR.
--- NOTE | 2020-05-19 19:30 | NUR ---
ENDORSED TO FLATWORK ASSEMBLER NURSE FOR CONTINUITY OF CARE. PT IS STABLE.
[2020-05-19 20:00] VITALS: BP 131/66
[2020-05-19] MEDS ORDERED: GABAPENTIN 300 MG CAP PO SCH (21:00)
[2020-05-19] MEDS: SIMVASTATIN 40 MG TAB PO SCH (21:32)
[2020-05-20 04:00] VITALS: BP 123/55
[2020-05-20] MEDS: metroNIDAZOLE 500 MG/NS PREMIX 100 ML IV SCH ×2 (05:26→14:00)
[2020-05-20] MEDS: BLOOD GLUCOSE MONITORING 1 DEV DEV FS SCH ×2 (06:39→12:30)
[2020-05-20] MEDS: NACL 0.9% 1,000 ML IV SCH (06:40)
[2020-05-20 07:25] LABS: BASOPHILS # (AUTO) 0.1 K/uL (0.00-0.22); BASOPHILS % (AUTO) 0.8 % (0.0-2.0); EOSINOPHILS # (AUTO) 0.2 K/uL (0-0.4); EOSINOPHILS % (AUTO) 2.8 % (0.0-4.0); HEMATOCRIT 36.6 % (36-48); HEMOGLOBIN 12.3 g/dL (12.0-16.0); LYMPHOCYTES % (AUTO) 25.3 % (20.5-51.1); MEAN CORPUSCULAR HEMOGLOBIN 29 pg (27-31); MEAN CORPUSCULAR HGB CONC 34 g/dL (33-37); MEAN CORPUSCULAR VOLUME 87.8 fL (80-94); MONOCYTES # (AUTO) 0.8 K/uL (0.8-1.0); MONOCYTES % (AUTO) 10.4 % (1.7-9.3); NEUTROPHILS # (AUTO) 4.8 K/uL (1.8-7.7); NEUTROPHILS % (AUTO) 60.7 % (42.2-75.2); PLATELET COUNT (AUTO) 219 K/uL (140-450); RED BLOOD CELL COUNT(AUTO) 4.17 MIL/uL (4.20-5.40); RED CELL DISTRIBUTION WIDTH 14.2 % (11.6-13.7); WHITE BLOOD COUNT (AUTO) 7.9 K/uL (4.8-10.8)
--- NOTE | 2020-05-20 07:25 | NUR ---
RECEIVED BEDSIDE REPORT FROM RN STAFFING NURSE. PATIENT IS A/OX4. ABLE TO MAKE NEEDS KNOWN. RESPIRATION EVEN AND UNLABORED. ON RA WITH NO DISTRESS NOTED. SKIN IS WARM AND DRY. HAS SHARAN PICC LINE INFUSING NS AT 100 ML/HR,INTACT AND PATENT. ABLE TO AMBULATE TO THE BR WITH ASSISTANCE. PLAN OF CARE DISCUSSED. SAFETY PRECAUTIONS IN PLACE. CALL LIGHT WITHIN REACH. WILL CONTINUE TO MONITOR.
[2020-05-20 07:33] LABS: ANION GAP 13.9 (8-16); CARBON DIOXIDE 25.5 mmol/L (21-32); CREATININE 0.6 mg/dL (0.6-1.3); POTASSIUM 3.4 mmol/L (3.5-5.1)
[2020-05-20 08:00] VITALS: BP 134/76
[2020-05-20 08:07] LABS: MAGNESIUM 1.7 mg/dL (1.8-2.4); PHOSPHORUS 3.9 mg/dL (2.5-4.9)
[2020-05-20] MEDS: ONDANSETRON 4 MG/2 ML VIAL IM/IVP PRN (09:50)
--- NOTE | 2020-05-20 09:50 | NUR ---
PATIENT COMPLAINED OF VOMITING IN THE BATHROOM. ADMINISTERED ZOFRAN IVP PRN PER MD ORDERED.
--- NOTE | 2020-05-20 10:00 | NUR ---
ALL SCHEDULED MEDS GIVEN. PT IS STABLE. NO DISTRESS NOTED. WILL CONTINUE TO MONITOR.
[2020-05-20] MEDS ORDERED: POTA10TE30 PO (10:47)
[2020-05-20] MEDS ORDERED: CEPH250C16 PO (10:47)
[2020-05-20] MEDS ORDERED: METR500T1 PO (10:47)
[2020-05-20] MEDS ORDERED: MAGN241.1 PO (10:47)
--- NOTE | 2020-05-20 10:51 | NUR ---
PATIENT WAS SEEN BY DR. OROSCO. MD DISCUSSED PLAN OF CARE WITH PATIENT. DISCHARGE ORDERS WERE RECEIVED. WILL PREPARE DISCHARGE FORMS.
--- NOTE | 2020-05-20 10:51 | NUR ---
DISCHARGE ORDERS IN PLACE. WILL NOTIFY PATIENT REGARDING DISCHARGE ORDERS.
[2020-05-20] MEDS ORDERED: PSYL0.4C2 PO (10:53)
[2020-05-20 12:22] VITALS: BP 134/76
--- NOTE | 2020-05-20 13:00 | NUR ---
DISCUSSED WITH PATIENT REGARDING DISCHARGE ORDERS. PATIENT VERBALIZE UNDERSTANDING AND SIGNED THE DISCHARGE FORMS. WILL NOW WAIT FOR FAMILY TO ARRIVE TO PICK PATIENT UP.
--- NOTE | 2020-05-20 13:10 | NUR ---
PATIENT REQUESTED FOR PRESCRIPTIONS TO BE SENT TO [facility] INSTEAD OF [facility]. NOTIFIED AND GAVE ME HIS [place] NUMBER TO CALL [facility] TO ORDER MEDICATIONS.
--- NOTE | 2020-05-20 13:29 | NUR ---
NOTIFIED DR. OROSCO IF PATIENT IS REQUIRED TO HAVE IV ABX FOR DISCHARGE. MENTIONED THAT PATIENT DOESNT REQUIRE IT ORAL ABX IS FINE FOR THE PATIENT TO TAKE.
--- NOTE | 2020-05-20 13:40 | NUR ---
CONTACTED [facility]. THEY MENTIONED THAT IT'LL BE FASTER AND EASIER IF THE PATIENT VISIT THE [facility] TO TRANSFER THE PRESCRIPTION OVER. CALLING OVER THE PHONE WILL TAKE A LONGER PROCESS.
--- NOTE | 2020-05-20 14:25 | NUR ---
PATIENT DISCHARGED OFF THE UNIT. PATIENT PICKED UP BY SON IN THE FRONT LOBBY. PT WAS STABLE PRIOR TO DISCHARGE.
[2020-05-21] MEDS ORDERED: LEVO750T51 PO (11:20)
== END 2020-05-20 14:35 | disposition home or self-care (01) | DRG 871 ==
LOC: MED 19:10 → MTU 05-16 00:04 → MIC 05-16 06:41 → MTU 05-17 14:52
PROC: 02HV33Z Insertion of Infusion Device into Superior Vena Cava, Percutaneous Approach (ICD-10-PCS; principal; 2020-05-16)
DX: A41.50 Gram-negative sepsis, unspecified (principal); R57.1 Hypovolemic shock; R65.21 Severe sepsis with septic shock; N39.0 Urinary tract infection, site not specified; E44.0 Moderate protein-calorie malnutrition; K57.92 Diverticulitis of intestine, part unspecified, without perforation or abscess without bleeding; F33.2 Major depressive disorder, recurrent severe without psychotic features; K57.32 Diverticulitis of large intestine without perforation or abscess without bleeding; E87.6 Hypokalemia; B96.20 Unspecified Escherichia coli [E. coli] as the cause of diseases classified elsewhere; E78.5 Hyperlipidemia, unspecified; K21.9 Gastro-esophageal reflux disease without esophagitis; Z96.651 Presence of right artificial knee joint; E11.40 Type 2 diabetes mellitus with diabetic neuropathy, unspecified; Z68.27 Body mass index [BMI] 27.0-27.9, adult; E83.42 Hypomagnesemia; E83.39 Other disorders of phosphorus metabolism; Z20.822 Contact with and (suspected) exposure to COVID-19
CPT/HCPCS: 36415; 70450; 71045; 74018; 80048; 80053; 80305; 81001; 82140; 82150; 82948; 83036; 83605; 83690; 83735; 83880; 84100; 84134; 84436; 84443; 84484; 85025; 85610; 85730; 87040; 87081; 87086; 93005; 96361; 96374; 96375; 99285; G0482; J0696; J1644; J1815; J2405; J3475; J3490; J7030; J7060; Q9967